=== PATIENT | female | born 1965 | race Caucasian/White ===

== ENCOUNTER 2021-02-16 01:42 | Emergency (ER) | payer OTHER, MEDICAID, SELFPAY ==
[2021-02-16 01:50] VITALS: BP 124/67; PULSE 92; RESP 18; TEMP 36.1; O2SAT 99; BMI 24.3
[2021-02-16] MEDS: AMOXICILLIN/CLAV 875/125 MG 1 TAB PO (02:16)
--- NOTE | 2021-02-16 02:49 | ED_ITS ---
HPI - Wound/Laceration General Chief Complaint: Wound/Laceration Stated Complaint: dog bite/no information on the Time Seen by Provider: 02/16/21 02:04 Source: patient and family Mode of arrival: Ambulatory Limitations: no limitations History of Present Illness HPI narrative: Patient here with significant other for dog bite to the right elbow. Unprovoked attack. Patient and partner or walking. A lady with her dog were walking by. Patient still states patient had a collar and tags. They states they will be able to locate the dog tomorrow. They do not want rabies vaccine. Patient states she is up-to-date with tetanus shot. Patient has a 4 cm L-shaped flap laceration to the olecranon area of the right elbow. Able to fully extend and flex. Able to supinate pronate. Base visualized in bloodless field. No bony injury seen. Small partial muscle injury seen. No tendon injury seen. Related Data Previous Rx's Medication Instructions Recorded acyclovir 800 mg tablet 800 mg PO 5X #35 06/19/12 gabapentin 300 mg capsule 300 mg PO TID #60 06/19/12 (Neurontin) amoxicillin 875 mg-potassium 1 tab PO BID #20 tab 02/16/21 clavulanate 125 mg tablet tramadol 50 mg tablet 50 mg PO TID PRN #14 tab 02/16/21 Allergies Allergy/AdvReac Type Severity Reaction Status Date / Time No Known Drug Allergies Allergy Verified 02/16/21 02:20 Review of Systems Review of Systems Narrative: GENERAL: Denies chills, fatigue, malaise, fever, sweats. HEENT: Denies sinus pain, ear pain, sore throat RESPIRATORY: Denies dyspnea, cough CARDIOVASCULAR: Denies chest pain, palpitations GASTROINTESTINAL: Denies nausea, vomiting, abdominal pain : Denies dysuria, frequency, hematuria MUSCULOSKELETAL: Complains of muscle or bony pain SKIN: Denies rash, skin lesions, complains of skin injury NEUROLOGIC: Denies weakness, numbness ROS Unobtainable: All systems reviewed & are unremarkable except as noted in HPI and below Patient History Social History Smoking Status: Current every day smoker Smoking Status: Current every day smoker tobacco type: cigars Substance Use Type: does not use Exam Narrative Exam Narrative: GENERAL: in no distress, not toxic not dyspneic HEAD: Normocephalic. EXTREMITIES: No gross deformities. Examination right elbow. There is L-shaped for 4 cm flap laceration/dog bite to the lateral elbow. Bloodless field Base visualized. Injury involves subcutaneous layer. No bony injury or exposure seen. No tendon injury seen. Full flexion extension supination pronation on exam. Actively. Light touch intact to hand and thumb. 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 Arm and hand warm soft and pink. No foreign body seen inside the laceration NEURO: AOx4. SKIN: Warm and dry PSYCH: Not anxious, is cooperative Initial Vital Signs Initial Vital Signs: Vital Signs Temperature 96.9 F L 02/16/21 01:50 Pulse Rate 92 H 02/16/21 01:50 Respiratory Rate 18 02/16/21 01:50 Blood Pressure 124/67 02/16/21 01:50 Pulse Oximetry 99 02/16/21 01:50 Procedures Laceration Repair Laceration 1: Time of procedure: 03:01 Site: upper extremity Side (If applicable): right Size (cm): 4 Description: flap Depth: simple, single layer Local Anesthetic: lidocaine 1% and with epi Amount of anesthesia used (mL): 5 Pre-repair: wound explored and irrigated extensively (250 mL normal saline, Hibiclens used) Skin layer closed with: nylon Size (cm): 4-0 Number of sutures: 4 Technique: simple, interrupted (Very loose approximation) Course Course Course Narrative: No new issues during course of stay Orders Ordered: ED Orders 02/16/21 02:49 XR elbow RT min 3V Stat Discontinued Medications Hydrocodone Bitart/Acetaminophen (Hydrocodone/Acet 5/325 Tablet) 2 tab PO NOW ONE Stop: 02/16/21 02:12 Last Admin: 02/16/21 02:22 Dose: Not Given Documented by: MARIEL Amoxicillin/Clavulanate Potassium (Amoxicillin/Clav 875/125 Mg) 1 tab PO NOW ONE Stop: 02/16/21 02:12 Last Admin: 02/16/21 02:16 Dose: 1 tab Documented by: MARIEL Bacitracin (Bacitracin Oint 0.9 Gm Pckt) 1 applic TOP NOW ONE Stop: 02/16/21 02:22 Last Admin: 02/16/21 02:52 Dose: 1 applic Documented by: MARIEL Hydromorphone HCl (Hydromorphone 1 Mg Inj) 1 mg IM NOW ONE Stop: 02/16/21 02:49 Last Admin: 02/16/21 02:52 Dose: 1 mg Documented by: MARIEL Ondansetron HCl (Ondansetron 4 Mg Odt) 4 mg SL NOW ONE Stop: 02/16/21 02:12 Last Admin: 02/16/21 02:52 Dose: 4 mg Documented by: MARIEL Reevaluation(s) Reevaluation #1: Patient tolerated loose staging the bite wound. Wound care discussed with patient and significant other. Time: 03:09 Reevaluation #2: Patient desires discharge home. Does not want await for results of x-ray reading Time: 03:39 Vital Signs Vital signs: Vital Signs - 8 hr 02/16/21 01:50 02/16/21 03:17 Temperature 96.9 F L Pulse Rate 92 H 84 Respiratory Rate 18 16 Blood Pressure 124/67 116/56 L Pulse Oximetry 99 100 MDM - Wound/Laceration Differential Diagnosis Differential diagnosis: Likely other (Dog bite) Imaging Data Extremity x-ray #1: Radiologist's Impression: X-ray right elbow read by overnight radiologist impression no acute bony abnormality no radiopaque foreign body. No displaced fat pads. Small superficial soft tissue injury within the posterior proximal elbow. [facility] Narrative Medical decision making narrative: Appropriate for discharge home. Again, patient understands very loose approximation to prevent infection. Return preca utions reviewed with patient and significant other. Not toxic. They agree with treatment plan Discharge Plan Departure Patient Disposition: Home Clinical Impression: Dog bite of elbow Qualifiers: Encounter type: initial encounter Laterality: right Qualified Code(s): S51.051A - Open bite, right elbow, initial encounter Instructions: DI for Animal Bites Activity Restrictions/Additional Instructions: Change dressing twice a day with warm soapy water and apply thin layer topical antibiotic. No submersion of elbow under water. Return if worse if any fever or drainage from the wound or redness or red streaking from the wound. Return if unable to move your elbow. Call provided referral number today to detain family doctor this week for recheck of your bite wound. Be sure to locate the dog to attain vaccination status of the animal. You have 4 stitches that will be needed to removed once skin edges have healed together strongly. You must be evaluated by your doctor for assessment before removal of stitches. Return here if any questions or concerns. Skin edges will take at least 1 week to start healing Prescriptions: New amoxicillin-pot clavulanate 875-125 mg tablet 1 tab PO BID Qty: 20 RF: 0 tramadol 50 mg tablet 50 mg PO TID PRN (Reason: pain) Qty: 14 RF: 0 No Action acyclovir 800 MG tablet 800 mg PO 5X Qty: 35 RF: 0 gabapentin [Neurontin] 300 MG capsule 300 mg PO TID Qty: 60 RF: 0 Referrals: [facility] [Outside] Marysol Staley PA-C [Primary Care Provider] -
--- NOTE | 2021-02-16 02:49 | DI.RAD.S_ITS ---
PROCEDURE: XR ELBOW RT MIN 3V INDICATIONS: Pain/injury TECHNIQUE: 3 views of the elbow were acquired. COMPARISON: None. FINDINGS: Bones: No fractures or dislocations. No suspicious bony lesions. Olecranon enthesophyte. Soft tissues: No elbow joint effusion. No suspicious soft tissue calcifications. Soft tissue laceration and contusion in the posterior elbow. IMPRESSION: No acute osseous abnormalities. No significant discrepancy with the overnight cashier radiology preliminary report. Dictated by: Maximus Joe M.D. on 02/16/2021 at 7:44 Approved by: Maximus Joe M.D. on 02/16/2021 at 8:39
[2021-02-16] MEDS: BACITRACIN OINT 0.9 GM PCKT 1 APPLIC TOP (02:52)
[2021-02-16] MEDS: ONDANSETRON 4 MG ODT SL (02:52)
[2021-02-16] MEDS: HYDROMORPHONE 1 MG INJ IM (02:52)
--- NOTE | 2021-02-16 03:16 | PC.NURSE ---
Right Elbow: bacitricin applied, nonadherent gauze then cushioned with 4x4 gauze, wrapped in kerlix
[2021-02-16 03:17] VITALS: BP 116/56; PULSE 84; RESP 16; O2SAT 100
== END 2021-02-16 03:49 | disposition home or self-care (01) ==
PROVIDERS: Emergency Provider Emergency Medicine; PCP Physician Assistant
DX: S51.051A Open bite, right elbow, initial encounter (principal); W54.0XXA Bitten by dog, initial encounter
CPT/HCPCS: 12002; 73080; 96372; 99283; 99284; J1170

== ENCOUNTER 2022-08-08 13:54 | Emergency (ER) | payer OTHER, MEDICAID, SELFPAY ==
[2022-08-08 14:27] VITALS: BP 146/70; PULSE 94; RESP 16; TEMP 36.2; O2SAT 100; BMI 25.4
--- NOTE | 2022-08-08 15:01 | PC.NURSE ---
RN called to waiting room for pt having difficulty breathing RN finds pt dry heaving into trash can in waiting room. Pt able to talk, aiwaway intact. Pt states she was vomiting. RN assisted pt to wheelchair and pt updated on wait time. Pt's breathing is non-labored and does not appear to be in respiratory distress. Pt asking for water.
[2022-08-08 17:00] VITALS: BP 136/73; PULSE 79; O2SAT 100
--- NOTE | 2022-08-08 17:18 | PC.NURSE ---
pt states she has a cyst on her right shoulder that appeared about 2 months ago, then about one month ago she noticed a cyst on her right collar bone as well. she feels like these cysts are comminicating with each other. when she moves her arm the shoulder one hurts and radiates to the one on her collarbone. she then had one on her scalp(left side, front) appear and the one behind her right ear. her pain will not radiate from the shoulder one, to the collar bone and now up to her ear cyst. she also c/o feeling of a shingles outbreak, as this happens twice a year. states she has been feeling hot and thinks she has a fever, she can feel it in her eyes. pt having nausea and vomitted once today. pt states she has been poking at the cyst on her ear, trying to drain it. blood and puss seen coming from cyst.
--- NOTE | 2022-08-08 17:23 | ED.SKABFB ---
HPI - Skin/Abscess/Foreign Bdy <Kaley Love PA-C - Last Filed: 08/08/22 18:55> General Chief complaint: Skin/Abscess/Foreign Body Stated complaint: abscess on lt ear, nausea Time Seen by Provider: 08/08/22 17:22 History of Present Illness HPI narrative: This is a generally well-appearing 56-year-old woman who presents with concern for abscesses developing over the past few months, that have resolved at home with her treatments, presents today with concern for an abscess behind her right ear that has been present for about 4 days. Patient states that she lanced it herself and it has been draining. She states it is painful, but that the pain improved after she lanced it and it started draining. She is concerned because she has been getting abscesses multiple times in multiple places. She has 1 spot on her scalp that she feels may have been a fibrous cyst, then she developed an abscess on her shoulder then about a month later she developed an abscess near her right collar bone. The last 2 she drained herself and packed with packing cord and she says that the infection follow the cord out and left they healed on their own with some scarring. She is concerned because she has pain between the 2 sites that are healed that happens when she moves, now that she has a new abscess behind her ear she feels a triangle of pain from her ear to her shoulder to her collarbone on the right side. 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 a long time ago and has been pursuing natural medicine treatments. She is amenable to taking antibiotics today for this. She has not seen anyone previously for her symptoms or her abscesses. She did have some nausea today and 1 episode of vomiting. She is requesting something for pain, though she has not taken anything. She states that Tylenol does not ?do anything?. But sometimes aspirin and ibuprofen are helpful for her. She denies fevers, chills, change in appetite, fatigue, headache, vision change, ear pain, hearing change, dizziness or any other symptoms. Related Data Previous Rx's Medication Instructions Recorded acyclovir 800 mg tablet 800 mg PO 5X ##35 06/19/12 gabapentin 300 mg capsule 300 mg PO TID ##60 06/19/12 (Neurontin) amoxicillin 875 mg-potassium 1 tab PO BID #20 tabs 02/16/21 clavulanate 125 mg tablet tramadol 50 mg tablet 50 mg PO TID PRN pain #14 tabs 02/16/21 doxycycline hyclate 100 mg capsule 100 mg PO BID abscess 10 days #20 08/08/22 caps ondansetron 4 mg disintegrating 4 mg PO Q8H PRN nausea and 08/08/22 tablet vomiting #14 tabs Allergies Allergy/AdvReac Type Severity Reaction Status Date / Time No Known Drug Allergies Allergy Verified 02/16/21 02:20 Review of Systems <Kaley Love PA-C - Last Filed: 08/08/22 18:55> Review of Systems Narrative: Unremarkable except as noted in the HPI Patient History <Kaley Love PA-C - Last Filed: 08/08/22 18:55> Social History Smoking Status: Current every day smoker Smoking Status: Current every day smoker tobacco type: cigars Substance Use Type: does not use Exam <Kaley Love PA-C - Last Filed: 08/08/22 18:55> Narrative Exam Narrative: GENERAL: 56 year old patient appears stated age. Well-developed patient, in mild distress. HEAD: See skin: Atraumatic. Normocephalic. EYES: Pupils equal round and reactive. Extraocular motions intact. No scleral icterus. No injection or drainage. ENT: See skin Nose without bleeding, purulent drainage. Airway patent. The ear canals normal in appearance, the tympanic membrane is slightly erythematous and slightly retracted. On the right. The pharynx and posterior oropharynx are without erythema, tonsils are not enlarged, no exudate. There is slight bilateral tonsillar lymphadenopathy equal bilaterally. No other lymphadenopathy noted. NECK: Trachea midline. Non tender CARDIOVASCULAR: Regular rate and rhythm without murmurs, gallops, or rubs. RESPIRATORY: Clear to auscultation. Breath sounds equal bilaterally. No wheezes, rales, or rhonchi. GASTROINTESTINAL: Abdomen soft, non-tender, nondistended. EXTREMITIES: No edema or joint tenderness. BACK: Nontender without deformity or crepitance. No flank tenderness. NEURO: AOx3. SKIN: Approximately 1 cm raised hemispheric shaped abscess behind the patient's right ear posterior to the pinna. There is mild erythema and the abscess has been previously opened, it is draining a thick purulent appearing material that is greenish in color. There is no mastoid tenderness, there is some tenderness with palpation of the skin adjacent to the abscess, there is no appreciable swelling of the skin adjacent to the abscess. And then area pointed out by the patient just inferior to the right mid clavicle, there is an approximately 2 mm firm area under the skin consistent with fibrous tissue at the site of her previous healed abscess. It is not consistent with lymphadenopathy. Unable to locate the abscess scar of the right shoulder. No rash or erythema of visible areas Initial Vital Signs Initial Vital Signs: Vital Signs Temperature 97.2 F L 08/08/22 14:27 Pulse Rate 94 H 08/08/22 14:27 Respiratory Rate 16 08/08/22 14:27 Blood Pressure 146/70 H 08/08/22 14:27 Pulse Oximetry 100 08/08/22 14:27 Oxygen Delivery Method 08/08/22 14:27 <Casi Hester DO - Last Filed: 08/11/22 08:48> Initial Vital Signs Initial Vital Signs: Vital Signs Temperature 97.2 F L 08/08/22 14:27 Pulse Rate 94 H 08/08/22 14:27 Respiratory Rate 16 08/08/22 14:27 Blood Pressure 146/70 H 08/08/22 14:27 Pulse Oximetry 100 08/08/22 14:27 Oxygen Delivery Method 08/08/22 14:27 Course <Kaley Love PA-C - Last Filed: 08/08/22 18:55> Orders Ordered: Discontinued Medications Doxycycline Hyclate (Doxycycline Hyclate 100 Mg Tablet) 100 mg PO NOW ONE Stop: 08/08/22 18:28 Last Admin: 08/08/22 18:40 Dose: 100 mg Documented By: NR Ondansetron HCl (Ondansetron 4 Mg Odt) 4 mg SL NOW ONE Stop: 08/08/22 17:24 Last Admin: 08/08/22 17:28 Dose: 4 mg Documented By: CTS Vital Signs Vital signs: Vital Signs - 8 hr 08/08/22 14:27 08/08/22 17:00 08/08/22 17:00 Temperature 97.2 F L Pulse Rate 94 H 79 Respiratory Rate 16 Blood Pressure 146/70 H 136/73 Pulse Oximetry 100 100 Oxygen Delivery Method Room Air <Casi Hester DO - Last Filed: 08/11/22 08:48> Orders Ordered: Discontinued Medications Doxycycline Hyclate (Doxycycline Hyclate 100 Mg Tablet) 100 mg PO NOW ONE Stop: 08/08/22 18:28 Last Admin: 08/08/22 18:40 Dose: 100 mg Documented By: NR Ondansetron HCl (Ondansetron 4 Mg Odt) 4 mg SL NOW ONE Stop: 08/08/22 17:24 Last Admin: 08/08/22 17:28 Dose: 4 mg Documented By: CTS Vital Signs Vital signs: Vital Signs - 8 hr 08/08/22 14:27 08/08/22 17:00 08/08/22 17:00 Temperature 97.2 F L Pulse Rate 94 H 79 Respiratory Rate 16 Blood Pressure 146/70 H 136/73 Pulse Oximetry 100 100 Oxygen Delivery Method Room Air MDM - Skin/Abscess/Foreign Bdy <Kaley Love PA-C - Last Filed: 08/08/22 18:55> Differential Diagnosis Differential diagnosis: Likely abscess of skin or subcutaneous tissue and other (scalp abscess) Medical Records Medical records narrative: Reviewed patient's medical records Treatment and disposition Shared decision making:: Shared decision-making was used in discussing options for treatment for the patient and what to pursue while in the emergency department as well as follow-up plan. MDM Narrative Medical decision making narrative: Generally well-appearing 56-year-old female presents with concern for abscess behind her right ear present for 4 days that she lanced and drained herself. After discussion patient does not desire to have it cleaned up today further in the emergency department she does not want anyone ?digging in there and messing around with it?. Did discuss showering with warm water and soap to clean it at home. She was agreeable with this plan. She is agreeable to antibiotics today and discussed doxycycline or Bactrim. She declines Augmentin because ?in my opinion it is not good for anything?. She did initially request both doxycycline and Bactrim antibiotics, however these are monotherapys given her condition and 1 or the other should be prescribed. So both are not prescribed for her. Did prescribe doxycycline as patient was agreeable to this. She denies antibiotic allergies. She also is concerned about pain between sites of her previously healed abscesses on her collarbone and her shoulder and now the site behind her ear. She is advised to take Tylenol and ibuprofen or Motrin/Advil, she states that she has aspirin and Motrin at home and will use these, she had not previously tried anything to relieve the pain. She did have some nausea today and received 1 dose of Zofran in the emergency department. She has not previously sought evaluation for abscesses though she has had now 3 over the past 2 or 3 months which she has treated at home herself with Lancing and packing. Patient does not have labs while in the emergency department today however her vitals are unremarkable and her history and symptoms are not consistent with a septic picture. She does appear to have a primary care provider in the system, she states she does not have 1, she is advised to establish care with a primary care provider if she does not and follow-up with them regarding her concerns about repeat abscess development and pain radiating between the healed sites. She is prescribed doxycycline for a 10 day course, also short prescription for Zofran, discussed return precautions monitoring for new or worsening symptoms. All questions answered. Discharge Plan Departure Patient Disposition: Home Clinical Impression: Abscess of scalp, Nausea Instructions: DI for Skin Abscess Activity Restrictions/Additional Instructions: Thank you for letting us be part of her care today in the emergency department. ED have a abscess behind her right ear that is draining well after you have lanced yourself at home. We did take a culture of this today will take about 48 hours to get the results but in the meantime I am prescribing antibiotics for you, we discussed these during her visit, prescribing doxycycline for you I would like you to take this with a full course even if your symptoms improve. Regarding your other abscesses that you have had developed in the past few months, I am not sure why you are getting these repeatedly, I do recommend that you establish care with a primary care provider and seek care when these develop, and you can talk to them further about your pain associated with these. I did prescribe ondansetron for you as well that you can use if he feel nauseous. Please monitor for new or worsening symptoms such as fevers, chills, persistent nausea or vomiting, diarrhea, new fatigue, worsening swelling or pain ice your abscess site despite antibiotics or any other symptoms of concern. Please do not hesitate to seek re-evaluation/medical care if these arise. There is no evidence of an emergent or life threatening illness at this time, but follow up with your doctor in 1-2 days is recommended nonetheless to continue to rule out serious underlying causes of your symptoms. Please call the office for an appointment. Please return to the Emergency Department for any worsening or persistent symptoms. Please take medications as directed. Prescriptions: New doxycycline hyclate 100 mg capsule 100 mg PO BID 10 Days Qty: 20 0RF ondansetron 4 mg tablet,disintegrating 4 mg PO Q8H PRN (Reason: nausea and vomiting) Qty: 14 0RF No Action acyclovir 800 MG tablet 800 mg PO 5X Qty: 35 0RF gabapentin [Neurontin] 300 MG capsule 300 mg PO TID Qty: 60 0RF amoxicillin-pot clavulanate 875-125 mg tablet 1 tab PO BID Qty: 20 0RF tramadol 50 mg tablet 50 mg PO TID PRN (Reason: pain) Qty: 14 0RF Referrals: Marysol Staley PA-C [Primary Care Provider] - Stand Alone Forms: Patient Portal/API <Csai Hester DO - Last Filed: 08/11/22 08:48> Cosign ED Attending Coshaileyature Attestation: I was immediately available in the department for consultation. This documentation has been reviewed. Supervised by Casi Hester DO
[2022-08-08] MEDS: ONDANSETRON 4 MG ODT SL (17:28)
[2022-08-08] MEDS: DOXYCYCLINE HYCLATE 100 MG TABLET PO (18:40)
== END 2022-08-08 19:00 | disposition home or self-care (01) ==
PROVIDERS: Emergency Provider Student in an Organized Health Care Education/Training Program; PCP Physician Assistant
DX: L02.811 Cutaneous abscess of head [any part, except face] (principal); R11.0 Nausea
CPT/HCPCS: 87070; 87075; 87077; 87147; 87186; 87205; 99283